=== PATIENT | female | born 1985 | race African-American/Black ===

== ENCOUNTER 2017-04-12 15:55 | Emergency (ER) | payer MEDICAID ==
[~2017-04-12] VITALS: Ht 167.6 cm; Wt 69.0 kg
[2017-04-12 21:05] VITALS: BP 125/84
== END 2017-04-12 21:09 | disposition home or self-care (01) ==
LOC: ER 20:53
DX: M72.2 Plantar fascial fibromatosis (principal); F17.200 Nicotine dependence, unspecified, uncomplicated
CPT/HCPCS: 73630; 99284